=== PATIENT | male | born 1935 | race Caucasian/White ===

== ENCOUNTER → 2017-01-03 | Day surgery (SDC) | payer MEDICARE, OTHER ==
[~2017-01-03] MED LIST: ACETAMINOPHEN/HYDROcodone 325 MG/5 MG TAB ONE; ALL220TA PO; BUPIVACAINE/EPINEPHRINE 0.5% PF 10 ML VIAL ONE; HYDR-2768 PO; KETOROLAC TROMETHAMINE 30 MG/ML (IVP) VIAL IV PUSH ONE; LACTATED RINGER'S 1000 ML INJ 1,000 ML ONE; LEVO.075 PO; ONDANSETRON HCL 4 MG/2 ML VIAL IV PUSH ONE; PRAV40TA PO; PROPOFOL 200 MG/20 ML AMP IV ONE; RAMI10CA PO; TAMS0.4C67 PO; VIAG100T PO; ceFAZolin 2 GM PREMIX 50 ML ONE
--- NOTE | 2017-01-03 11:40 | TN ---
cc: ISRAEL DIXON M.D. DATE OF SURGERY 01/03/2079 PREOPERATIVE DIAGNOSES 1. Recurrent incarcerated left inguinal hernia. 2. Recurrent right inguinal hernia. POSTOPERATIVE DIAGNOSES 1. Recurrent incarcerated left inguinal hernia. 2. Recurrent right inguinal hernia. PROCEDURE Laparoscopic repair of bilateral recurrent inguinal hernias with mesh, incarcerated on the left. SURGEON Dr. Israel Dixon. [employer]PLY [employer]ION [employer] OL[employer] [place] ANESTHESIA General. INDICATIONS This is a pleasant 81-year-old gentleman who had inguinal hernia surgery about 25 years ago. 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 He was sent to me in consultation by Dr. Lagos. Physical exam demonstrated bilateral inguinal hernias. He had an non-reducible palpable left groin mass. CT scan confirmed the mass was from an inguinal hernia. INTRAOPERATIVE FINDINGS Incarcerated left indirect inguinal hernia. A left groin mesh plug in the direct space, part of which was excised and discarded. Right indirect inguinal hernia with; no evidence of mesh plug on the right. DESCRIPTION OF PROCEDURE IN DETAIL The patient was identifies as Rian Mcclain, taken to the operating room, placed in supine position. Sequential compression devices were placed on the bilateral lower extremities. Following induction of adequate general anesthesia, the patient's lower abdomen was prepped and draped in the usual sterile fashion with Betadine. A time-out procedure was performed. Following completion of the time-out procedure to everyone's satisfaction within the room. 0.25% Marcaine with epinephrine was placed at each incision site. Infraumbilical 2-3 cm vertical incision was made with a scalpel dissection continued posteriorly to the level of the anterior rectus fascia on the left side. This was incised in its medial margin and a preperitoneal plane was developed with the surgeon's finger directed towards the pubic symphysis. With the patient in slight Trendelenburg position under direct laparoscopic view, the balloon was then pumped approximately 35 times which allowed for identification of the pubic symphysis and bilateral Carlos's ligaments. Inferior epigastric vessels were also identified. The balloon was desufflated and removed and the structural balloon trocar placed in the preperitoneal space, its balloon inflated with CO2 insufflation until a level of 11 mmHg ensued. Two infraumbilical midline 5-mm trocars were then placed in the preperitoneal space under direct laparoscopic view after incision of the skin with a scalpel. Attention was turned first to the left side. Blunt dissection allowed for identification of the pubic symphysis. Carlos's ligament was covered by a mesh plug. This was mobilized from preperitoneal fat. Blunt dissection lateral and posterior to the spermatic cord was performed and an obvious indirect inguinal hernia sac was identified. It was reduced from the inguinal canal and a bulge of tissue within the hernia sac was reduced and this was consistent with the non-reducible left groin bulge which was now gone. The hernia sac was reduced to the base of the spermatic cord using the blunt graspers. A mesh plug was then partially excised allowing for uncovering of the Carlos's ligament on the left side and the small piece of plug was removed from the preperitoneal space. A 4 x 6 inch piece of Atrium ProLite mesh was cut with an anterolateral slit, placed around his spermatic cord and tacked in position with the tacking device. Tacks were placed to approximate the anterolateral slit along the anterior border of Carlos's ligament and medial to the inferior epigastric vessels. A 2 x 6 inch piece of mesh was placed across the anterolateral slit and held in position with a tack superior lateral, inferior medial and superior medial. A photograph was taken of the completed repair and attention was turned to the right side. Similar blunt dissection was performed using blunt the graspers. No mesh plug was identified on the right; however, an indirect inguinal hernia sac was identified and reduced from the inguinal canal to the preperitoneal space to the base of the spermatic cord. An indirect defect was identified and photographed. A small spur of the spermatic cord lipoma was reduced into the preperitoneal space. A 4 x 6 inch piece of the Prolene mesh was were placed around the spermatic cord and tacked in position with a ProTack device, placing tacks to approximate the anterolateral slit along the inferior medial Carlos's ligament. A 2 x 6 inch piece of mesh was placed across the anterolateral slit and held in position superior laterally and inferior medially as well as superior medially. A photograph was taken of the completed repair. Remaining local anesthetic was placed in the preperitoneal space. The preperitoneal space was desufflated. Inferolateral mesh was held against the anterior abdominal wall. The anterior rectus fascial incision was closed with running 2-0 Vicryl suture. Port site skin incisions were approximated with 4-0 Monocryl subcuticular sutures. Dressings were applied with Mastisol and 1/2-inch brown Steri-Strips. The patient tolerated the procedure without apparent complication. Sponge, needle and instrument counts were correct at the end of the case. ADDENDUM This procedure was assisted by my nurse practitioner. The skill set of a nurse practitioner was medically necessary to provide appropriate visualization and increased efficiency in the completion of the operation. The case technician was at the back table providing appropriate instrumentation while the nurse practitioner was directly assisting me through the entirety of the procedure. MD ORION Clark/CORINNE /11:13 AM /11:28 AM
== END | disposition home or self-care (01) ==
LOC: ESDC 08:13
PROVIDERS: ATTEND Surgery Trauma Surgery
DX: K40.31 Unilateral inguinal hernia, with obstruction, without gangrene, recurrent (principal); K40.91 Unilateral inguinal hernia, without obstruction or gangrene, recurrent
CPT/HCPCS: 00840; 49651; J0690; J1885; J2405; J3010; J7120; C1727; C1781